=== PATIENT | female | born 1970 | race African-American/Black ===

== ENCOUNTER → 2019-02-26 | Outpatient (CLI) | payer OTHER ==
--- NOTE | 2019-02-26 12:34 | PCVCIMAG ---
APPROVED REPORT Study performed: 02/26/2019 11:13:03 EXAM: Comprehensive 2D, Doppler, and color-flow Echocardiogram Patient Location: Echo lab Status: routine BSA: 2.18 HR: 86 bpmBP: 128/84 mmHg Rhythm: NSR Other Information Study Quality: Good Risk Factors: Cardiac Risk Factors: HTN, Hyperlipidemia Indications Dyspnea 2D Dimensions IVSd: 11.31 (7-11mm)LVOT Diam: 20.00 (18-24mm) LVDd: 40.33 mm PWd: 12.00 (7-11mm)Ascending Ao: 38.36 (22-36mm) LVDs: 28.75 (25-40mm) Left Atrium: 40.52 (27-40mm) Aortic Root: 30.79 mm LV Single Plane 4CH: 64.09 % LV Single Plane 2CH: 64.67 % Biplane EF: 66.9 % Volumes Left Atrial Volume (Systole) Single Plane 4CH: 56.34 mLSingle Plane 2CH: 65.18 mL LA ESV Index: 30.00 mL/m2 Aortic Valve AoV Peak Srinath.: 1.89 m/s AO Peak Gr.: 14.33 mmHgLVOT Max P.99 mmHg LVOT Max V: 1.12 m/s ZAHIRA Vmax: 1.86 cm2 Mitral Valve E/A Ratio: 0.6 MV Decel. Time: 224.34 ms MV E Max Srinath.: 0.64 m/s MV A Srinath.: 1.08 m/s IVRT: 58.82 ms TDI E/Lateral E': 12.80E/Medial E': 16.00 Medial E' Srinath.: 0.04 m/s Lateral E' Srinath.: 0.05 m/s Pulmonary Valve PV Peak Srinath.: 1.40 m/sPV Peak Gr.: 7.81 mmHg Pulmonary Vein P Vein S: 0.76 m/sP Vein A: 0.32 m/s P Vein D: 0.32 m/sP Vein A Dur.: 72.7 msec P Vein S/D Ratio: 2.38 Tricuspid Valve RAP Estimate: 7.00 mmHg Left Ventricle The left ventricle is normal size. There is normal LV segmental wall motion. Borderline concentric left ventricular hypertrophy. Left ventricular systolic function is normal. The left ventricular ejection fraction is within the normal range. LVEF is 65%. Mild diastolic dysfunction is present (impaired relaxation pattern). Right Ventricle The right ventricle is normal size. The right ventricular systolic function is normal. Atria The left atrium size is normal. The right atrium size is normal. Aortic Valve The aortic valve is normal in structure. No aortic regurgitation is present. There is no aortic valvular stenosis. Mitral Valve The mitral valve is normal in structure. There is no mitral valve regurgitation noted. No evidence of mitral valve stenosis. Tricuspid Valve The tricuspid valve is normal in structure. Trace tricuspid regurgitation. Unable to assess PA pressure. Pulmonic Valve The pulmonary valve is normal in structure. Trace pulmonic regurgitation. Great Vessels The aortic root is normal in size. IVC is normal in size and collapses >50% with inspiration. Pericardium There is no pericardial effusion. <Conclusion> The left ventricle is normal size. LVEF is 65%. The aortic valve is normal in structure. The mitral valve is normal in structure. The tricuspid valve is normal in structure. Trace tricuspid regurgitation. Unable to assess PA pressure. The pulmonary valve is normal in structure. Trace pulmonic regurgitation. There is no pericardial effusion.
== END | disposition home or self-care (01) ==
LOC: PCVCIMAG 11:16
PROVIDERS: ATTEND Internal Medicine
DX: R06.00 Dyspnea, unspecified (principal); I10 Essential (primary) hypertension; E78.5 Hyperlipidemia, unspecified
CPT/HCPCS: 93306